=== PATIENT | male | born 1995 | race Caucasian/White ===

== ENCOUNTER 2019-01-04 23:47 | Emergency (ER) | payer SELFPAY ==
[~2019-01-04] VITALS: Ht 188 cm; Wt 95.3 kg
[2019-01-05 00:15] VITALS: BP 137/81
--- NOTE | 2019-01-05 00:27 | Emergency Room Report ---
History of Present Illness General Chief Complaint: General Complaint Source: Patient, Friend Present Illness [facility] This is a 24-year-old male with unknown psychiatric history. He presents with chief complaint of insomnia. He said that he smokes marijuana 5 days ago. Since then unable to sleep. Denies any drug use. He said it may have been laced with something but he does not know. According to his friend he has racing thoughts. Not sleeping much. He denies any suicidal thoughts or homicidal thought. Denies any hallucination or delusion. No family history of schizophrenia. Allergies: Coded Allergies: PENICILLINS (Verified Allergy, Mild, 01/04/19) Patient History Past Medical History: none, see triage record, old chart reviewed Past Surgical History: none Pertinent Family History: none Social History: Denies: smoking Immunizations: other Reviewed Nursing Documentation: PMH: Agreed; PSxH: Agreed Nursing Documentation-PMH History Of Psychiatric Problem: Yes - insomnia Review of Systems Eye: Denies: eye pain, blurred vision ENT: Denies: ear pain, nose congestion, throat swelling Respiratory: Denies: cough, shortness of breath Cardiovascular: Denies: chest pain, palpitations Gastrointestinal: Denies: abdominal pain, diarrhea, nausea, vomiting Musculoskeletal: Denies: back pain, joint pain Skin: Denies: rash Neurological: Denies: headache, numbness Endocrine: Denies: increased thirst, increased urine Hematologic/Lymphatic: Denies: easy bruising All Other Systems: negative except mentioned in HPI Physical Exam Vital Signs Date Time Temp Pulse Resp B/P (MAP) Pulse Ox O2 Delivery O2 Flow Rate FiO2 01/04/19 23:50 98.4 82 16 137/81 (99) 95 Room Air Vitals normal Sp02 EP Interpretation: reviewed, normal General Appearance: well appearing, no apparent distress, alert Head: normocephalic, atraumatic Eyes: bilateral eye PERRL, bilateral eye EOMI ENT: hearing grossly normal, normal pharynx Neck: full range of motion, supple, no meningismus Respiratory: chest non-tender, lungs clear, normal breath sounds Cardiovascular #1: regular rate, rhythm, no murmur Gastrointestinal: normal bowel sounds, non tender, no mass, no organomegaly, no bruit, non-distended Musculoskeletal: back normal, gait/station normal, normal range of motion Neurologic: alert, oriented x3 Psychiatric: other - Patient thoughts is very non-congruent. He denies suicidal thoughts or homicidal thoughts. Denies hallucination or delusion. Suicide Risk Assessment: Suicidal Ideation: No Had intent to initiate attempt: No Pt's plan for suicide attempt: No Has means to complete attempt: No Medical Decision Making Diagnostic Impression: Primary Impression: Insomnia Qualified Codes: G47.00 - Insomnia, unspecified Additional Impression: Behavior disturbance ER Course Patient complaining of anxiety and insomnia. May have some underlying psychiatric disorder. He claimed that he was on Seroquel before. He is better after dose of Ativan here. Not suicidal or homicidal. No criteria for 5150. Will discharge home with psychiatric follow-up. Last Vital Signs Date Time Temp Pulse Resp B/P (MAP) Pulse Ox O2 Delivery O2 Flow Rate FiO2 01/04/19 23:50 98.4 82 16 137/81 (99) 95 Room Air Status: improved Disposition: HOME, SELF-CARE Condition: Stable Additional Instructions: Follow-up with your doctor in 7 days. Abstain from drugs and alcohol. Return if symptoms worsen. Orlando Elizabeth MD Jan 05, 2019 00:27
[2019-01-05] MEDS ORDERED: LORazepam Inj 2mg/ml 1ml IM ONE (00:30)
--- NOTE | 2019-01-05 00:37 | NUR ---
ED Nurse Note: Patient walked in to ER from home, due to neck pain. Stated that was doing some kind of point preassure, and hurt his neck. Patient presented anxious, can not think straight. AAO x4, VSS at this time, skin is dry warm to touch.
--- NOTE | 2019-01-05 01:16 | NUR ---
ED Nurse Note: Patient cleared for discharge, no s.s of acute distrress. Patient verbalized understanding of discharge instructions.
[2019-01-05 01:17] VITALS: BP 137/81
== END 2019-01-05 01:17 | disposition home or self-care (01) ==
LOC: EMR 23:59
DX: G47.00 Insomnia, unspecified (principal); F91.9 Conduct disorder, unspecified; Z88.0 Allergy status to penicillin; F12.10 Cannabis abuse, uncomplicated
CPT/HCPCS: 96372; 99283